=== PATIENT | female | born 2000 | race American Indian/Alaskan Native ===

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

== ENCOUNTER 2018-01-28 16:11 | Emergency (ER) | payer OTHER ==
[2017-08-09 08:29] VITALS: BMI 31.9
[2018-01-28 21:42] VITALS: PULSE 88; RESP 18; TEMP 98.5
== END 2018-01-28 17:15 | disposition home or self-care (01) ==
LOC: H.EROB2 16:11
DX: O26.852 Spotting complicating pregnancy, second trimester (principal); Z3A.21 21 weeks gestation of pregnancy